=== PATIENT | female | born 1970 | race Caucasian/White ===

== ENCOUNTER 2023-07-26 15:38 | Emergency (ER) | payer MEDICAID, SELFPAY ==
[2023-07-26 15:41] VITALS: BP 115/84; PULSE 92; RESP 16; TEMP 36.3; O2SAT 96; BMI 23.4
--- NOTE | 2023-07-26 15:42 | CRLHL7_ITS ---
For Patients: As a result of the Cures Act, medical imaging exams and procedure reports are released immediately into your electronic medical record. You may view this report before your referring provider. If you have questions, please contact your health care provider. Indication: Trauma. Technique: Left wrist, 3 views. Comparison: None. Findings: Bones: Alignment is normal. No fractures or bone lesions. Joint spaces: Unremarkable. Soft tissues: Soft tissue swelling surrounding the wrist.. Impression: No acute fractures or dislocations. Soft tissue swelling surrounding the wrist. Dictated by Madelin Silva MD @ 07/26/2023 4:35:10 PM (Electronically Signed)
[2023-07-26 16:08] VITALS: PULSE 94; O2SAT 100
[2023-07-26 16:30] VITALS: PULSE 93; O2SAT 99
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
== END 2023-07-26 17:10 | disposition home or self-care (01) ==
PROVIDERS: Emergency Provider Family Medicine
DX: M25.532 Pain in left wrist (principal); V29.39XA Other motorcycle (driver) (passenger) injured in unspecified nontraffic accident, initial encounter
CPT/HCPCS: 29125; 73110; 99283; 99284